=== PATIENT | female | born 1990 | race Caucasian/White ===

== ENCOUNTER 2024-02-03 19:28 | Inpatient (IN) | payer BC ==
[2024-02-03] MEDS ORDERED: dexmedeTOMIDine HCl 200 MCG/2 ML SDV ONE (21:21)
[2024-02-03] MEDS ORDERED: Ondansetron 4 MG/2 ML SDV ONE (21:21)
[2024-02-03] MEDS ORDERED: Oxytocin 10 Units/1 ML SDV ONE ×4 (21:21→21:22)
[2024-02-03] MEDS ORDERED: Dexamethasone 4 MG/ML 5 ML MDV ONE (21:21)
[2024-02-03] MEDS ORDERED: fentaNYL 100 MCG/2 ML SDV ONE (21:21)
[2024-02-03] MEDS ORDERED: Morphine PF 10 MG/10 ML SDV ONE (21:21)
[2024-02-03] MEDS ORDERED: ceFAZolin 2 GM Vial ONE (21:22)
[2024-02-03] MEDS ORDERED: Phenylephrine 1% 10 MG/ML SDV ONE (21:22)
[2024-02-03] MEDS: Lactated Ringers 1,000 ML IV SCH (21:25)
[2024-02-03] MEDS ORDERED: Water For Injection, Sterile 20 ML ONE (21:26)
[2024-02-03] MEDS ORDERED: Tranexamic Acid 1,000 MG/10 ML Vial ONE (21:29)
[2024-02-03] MEDS ORDERED: Calcium Chloride 10% 1 GM/10 ML Syringe ONE (21:30)
[2024-02-03] MEDS ORDERED: Ropivacaine 0.5% 5 MG/ML 30 ML SDV ONE (21:30)
[2024-02-03 21:35] LABS: HEMATOCRIT 37.1 % (37.0-47.0); HEMOGLOBIN 12.9 g/dL (12.0-16.0); MEAN CORPUSCULAR HEMOGLOBIN 31.7 pg (28.0-32.0); MEAN CORPUSCULAR HGB CONC 34.8 g/dL (32.0-36.0); MEAN CORPUSCULAR VOLUME 91.2 fL (83.0-99.0); MEAN PLATELET VOLUME 10.6 fL (9.4-12.3); PLATELET COUNT,PLT 274 K/uL (150-400); RED BLOOD CELL COUNT 4.07 M/uL (4.10-5.30); WHITE BLOOD CELL COUNT,WBC 13.17 K/uL (3.9-11.3)
[2024-02-03] MEDS ORDERED: Sodium Chloride 0.9% 2.5 ML Syringe FLUSH PRN (21:36)
[2024-02-03] MEDS ORDERED: Sodium Chloride 0.9% 10 ML Syringe FLUSH PRN (21:36)
[2024-02-03] MEDS ORDERED: Sodium Chloride 0.9% 20 ML SDV IV PRN (21:36)
[2024-02-03] MEDS: ceFAZolin 2 GM in Sodium Chloride 0.9% 50 ML IV ONE (21:45)
[2024-02-03] MEDS ORDERED: Oxytocin/0.9 % Sodium Chloride 30 UNIT/500 ML BAG IV SCH (21:45)
[2024-02-03] MEDS ORDERED: Lactated Ringers 1,000 ML IV SCH (21:45)
[2024-02-03] MEDS ORDERED: ePHEDrine 50 MG/ML SDV ONE (21:46)
[2024-02-03] MEDS ORDERED: Lanolin 100% Cream 7 GM Tube TOP PRN (21:46)
[2024-02-03] MEDS ORDERED: Acetaminophen/oxyCODONE 325-5 MG Tab PO PRN ×2 (21:46→22:15)
[2024-02-03] MEDS ORDERED: Misoprostol 200 MCG Tab RECTAL PRN (21:46)
[2024-02-03] MEDS ORDERED: Ondansetron 4 MG/2 ML SDV IVPUSH PRN ×3 (21:46→22:15)
[2024-02-03] MEDS ORDERED: Methylergonovine 0.2 MG/1 ML Amp IM PRN (21:46)
[2024-02-03] MEDS ORDERED: diphenhydrAMINE 50 MG/ML SDV IVPUSH PRN ×2 (21:46→22:15)
[2024-02-03] MEDS ORDERED: droPERidol 5 MG/2 ML SDV ONE (21:56)
[2024-02-03 21:59] LABS: PROTEIN CREATININE RATIO,URINE 0.5; PROTEIN,URINE RANDOM 12.9 mg/dL (<11.9)
[2024-02-03 22:02] LABS: A/G RATIO 0.6 (0.9-1.6); ALBUMIN 2.4 g/dL (3.4-5.0); BILIRUBIN TOTAL 0.3 mg/dL (0.2-1.0); CALCIUM 9.8 mg/dL (8.5-10.1); CARBON DIOXIDE,CO2 20.9 mmol/L (21.0-32.0); CREATININE 0.8 mg/dL (0.6-1.0); EST CRCL DRUG DOSING (CG) 100.9 mL/min; POTASSIUM,K 3.8 mmol/L (3.5-5.1); PROTEIN TOTAL,TP 6.6 g/dL (6.4-8.2)
[2024-02-03] MEDS ORDERED: fentaNYL 100 MCG/2 ML SDV IVPUSH PRN (22:15)
[2024-02-03] MEDS ORDERED: Albuterol 0.083% 2.5 MG/3 ML Neb Soln NEB PRN (22:15)
[2024-02-03] MEDS ORDERED: HYDROmorphone 1 MG/ML Syringe IVPUSH PRN (22:15)
[2024-02-03] MEDS ORDERED: Naloxone 0.4 MG/ML SDV IVPUSH PRN (22:15)
[2024-02-03] MEDS ORDERED: fentaNYL 50 MCG/ML SDV IVPUSH PRN (22:15)
[2024-02-03] MEDS ORDERED: Metoclopramide 10 MG/2 ML SDV IVPUSH PRN (22:15)
[2024-02-03] MEDS ORDERED: Nalbuphine 10 MG/1 ML Vial IVPUSH PRN (22:15)
[2024-02-03] MEDS ORDERED: Phenylephrine HCl In 0.9% NaCl 1 MG/10 ML Syringe IVPUSH PRN (22:15)
[2024-02-03] MEDS ORDERED: Morphine 2 MG/ML SYRINGE IVPUSH PRN (22:15)
[2024-02-03 23:02] LABS: PH,UMBILICAL ARTERIAL 7.138 (7.18-7.38); PH,UMBILICAL VENOUS 7.171 (7.25-7.45)
[2024-02-03] MEDS: Ketorolac 30 MG/ML SDV IVPUSH SCH (23:59)
[2024-02-04] MEDS: Acetaminophen 1,000 MG in Premix Bag 1 BAG IV SCH (01:00)
[2024-02-04 07:22] LABS: HEMATOCRIT 34.7 % (37.0-47.0); HEMOGLOBIN 11.8 g/dL (12.0-16.0); MEAN CORPUSCULAR HEMOGLOBIN 31.6 pg (28.0-32.0); MEAN PLATELET VOLUME 10.3 fL (9.4-12.3); PLATELET COUNT,PLT 235 K/uL (150-400); RED BLOOD CELL COUNT 3.73 M/uL (4.10-5.30); WHITE BLOOD CELL COUNT,WBC 18.24 K/uL (3.9-11.3)
[2024-02-04] MEDS: Docusate Sodium 100 MG Cap PO SCH (08:19)
[2024-02-05] MEDS: Acetaminophen/oxyCODONE 325-5 MG Tab PO PRN (04:13)
[2024-02-05] MEDS: Ibuprofen 800 MG Tab PO PRN (08:54)
[2024-02-05] MEDS: Acetaminophen 500 MG Tab PO PRN (12:20)
[2024-02-05 16:58] LABS: BASOPHILS ABSOLUTE AUTO 0.05 K/uL (0.00-0.20); BASOPHILS PERCENT AUTO 0.4 % (0.0-1.0); EOSINOPHILS PERCENT AUTO 0.8 % (0.0-6.0); HEMATOCRIT 31.9 % (37.0-47.0); HEMOGLOBIN 10.7 g/dL (12.0-16.0); IMMATURE GRAN ABSOLUTE AUTO 0.08 K/uL (0.00-0.05); IMMATURE GRAN PERCENT AUTO 0.6 % (0.0-0.4); LYMPHOCYTES ABSOLUTE AUTO 2.97 K/uL (1.00-4.80); LYMPHOCYTES PERCENT AUTO 22.3 % (24.0-44.0); MEAN CORPUSCULAR HGB CONC 33.5 g/dL (32.0-36.0); MEAN CORPUSCULAR VOLUME 95.5 fL (83.0-99.0); MEAN PLATELET VOLUME 9.9 fL (9.4-12.3); MONOCYTES ABSOLUTE AUTO 1.04 K/uL (0.00-0.80); MONOCYTES PERCENT AUTO 7.8 % (0.0-8.0); NEUTROPHILS ABSOLUTE AUTO 9.07 K/uL (1.80-7.70); NEUTROPHILS PERCENT AUTO 68.1 % (41.0-71.0); PLATELET COUNT,PLT 240 K/uL (150-400); RED BLOOD CELL COUNT 3.34 M/uL (4.10-5.30); WHITE BLOOD CELL COUNT,WBC 13.31 K/uL (3.9-11.3)
[2024-02-05 17:27] LABS: A/G RATIO 0.6 (0.9-1.6); ALBUMIN 2.1 g/dL (3.4-5.0); BILIRUBIN TOTAL 0.2 mg/dL (0.2-1.0); CALCIUM 8.8 mg/dL (8.5-10.1); CARBON DIOXIDE,CO2 24.8 mmol/L (21.0-32.0); CREATININE 0.9 mg/dL (0.6-1.0); EST CRCL DRUG DOSING (CG) 89.69 mL/min; POTASSIUM,K 4.1 mmol/L (3.5-5.1); PROTEIN TOTAL,TP 5.7 g/dL (6.4-8.2)
[2024-02-05] MEDS: oxyCODONE 5 MG Tab PO PRN (18:32)
[2024-02-05] MEDS: Bisacodyl 10 MG Supp RECTAL PRN (19:56)
[2024-02-06] MEDS: NIFEdipine 30 MG Tab.ER PO ONE (09:47)
== END 2024-02-06 10:50 | disposition home or self-care (01) | DRG 540 ==
LOC: MW.OBCHECK 19:28 → MW.OB 19:29 → MW.OBCHECK 22:15 → MW.OB 02-04 00:40
PROVIDERS: ADMIT Obstetrics & Gynecology; ATTEND Obstetrics & Gynecology
PROC: 10D00Z1 Extraction of Products of Conception, Low, Open Approach (ICD-10-PCS; principal; 2024-02-03 21:39)
DX: O14.04 Mild to moderate pre-eclampsia, complicating childbirth (principal); O42.02 Full-term premature rupture of membranes, onset of labor within 24 hours of rupture; O34.211 Maternal care for low transverse scar from previous cesarean delivery; Z3A.39 39 weeks gestation of pregnancy; Z37.0 Single live birth
CPT/HCPCS: 01961; 36415; 59025; 59514; 64999; 80053; 82570; 82803; 83615; 84112; 84156; 85025; 85027; 86592; 86850; 86900; 86901; A9270-GY; J0131; J0690; J1100; J1790; J1885; J2274; J2371; J2405; J2590; J2795; J3010; J3490; J7120